=== PATIENT | female | born 1965 | race Caucasian/White ===

== ENCOUNTER → 2018-02-16 | Outpatient (CLI) | payer OTHER ==
[~2018-02-16] MED LIST: OMNIPAQUE 350 MG/ML, 75ML BOTTLE ONE
== END | disposition home or self-care (01) ==
LOC: CFH 14:16
PROVIDERS: ATTEND Surgery
DX: M89.9 Disorder of bone, unspecified (principal); E11.9 Type 2 diabetes mellitus without complications
CPT/HCPCS: 71260; 82565; Q9967

== ENCOUNTER 2018-04-13 06:00 | Day surgery (SDC) | payer OTHER ==
[~2018-04-13] VITALS: Ht 154.9 cm; Wt 91.0 kg
[2018-04-13 06:50] VITALS: BP 131/80
[2018-04-13] MEDS ORDERED: METF500T17 PO (06:56)
[2018-04-13] MEDS ORDERED: IBUP-1223 PO (06:56)
[2018-04-13] MEDS ORDERED: LOVA20TA2 PO (06:56)
[2018-04-13] MEDS ORDERED: LOSA100T7 PO (06:56)
[2018-04-13] MEDS ORDERED: SODIUM CHLORIDE 0.9% 1,000 ML IV SCH (07:00)
[2018-04-13] MEDS ORDERED: LIDOCAINE-MPF 2%, 2ML ONE (08:08)
[2018-04-13] MEDS ORDERED: NALOXONE 1 MG/ML, 2ML ONE (08:33)
[2018-04-13] MEDS ORDERED: FLUMAZENIL 0.1 MG/1 ML, 5ML ONE (08:33)
[2018-04-13] MEDS ORDERED: FENTANYL PF 100 MCG/2ML ONE (08:33)
[2018-04-13] MEDS ORDERED: MIDAZOLAM 1 MG/ML, 5ML ONE (08:33)
[2018-04-13] MEDS ORDERED: HYDROcodone/APAP 5/325 TABLET PO ONE (11:00)
== END 2018-04-13 11:35 | disposition home or self-care (01) ==
LOC: OUT 06:00
PROVIDERS: ATTEND Surgery
DX: M89.8X8 Other specified disorders of bone, other site (principal); E66.9 Obesity, unspecified; I10 Essential (primary) hypertension; Z98.890 Other specified postprocedural states
CPT/HCPCS: 20220; 77012; 88307; 88311; 99156; 99157; J2250; J3010; J3490; J7030; 88341; 88342; G0461; J2310

== ENCOUNTER → 2018-06-01 | Outpatient (CLI) | payer OTHER ==
[~2018-06-01] MED LIST changes: +IBUP-1223 PO; +LOSA100T7 PO; +LOVA20TA2 PO; +METF500T17 PO; -OMNIPAQUE 350 MG/ML, 75ML BOTTLE ONE
== END | disposition home or self-care (01) ==
LOC: PETCFH 12:46
PROVIDERS: ATTEND Internal Medicine Hematology & Oncology
DX: C90.20 Extramedullary plasmacytoma not having achieved remission (principal)
CPT/HCPCS: 78815; A9552

== ENCOUNTER → 2018-07-02 | Outpatient (CLI) | payer OTHER | END | disposition home or self-care (01) | LOC: ROC 08:33 | PROVIDERS: ATTEND Radiology Radiation Oncology | DX: C90.30 Solitary plasmacytoma not having achieved remission (principal); E11.9 Type 2 diabetes mellitus without complications | CPT/HCPCS: 99214; G0463 ==

== ENCOUNTER 2018-08-31 10:30 | Emergency (ER) | payer OTHER ==
[~2018-08-31] VITALS: Ht 152.4 cm; Wt 91.6 kg
[~2018-08-31 10:30] MED LIST changes: +LOSA100T14 PO; -LOSA100T7 PO
[2018-08-31] MEDS ORDERED: SODIUM CHLORIDE FLUSH 10ML SYR IVF ONE (11:30)
[2018-08-31 11:41] LABS: MEAN CORPUSCULAR HEMOGLOBIN 26.4 pg (27.0-34.8); MEAN CORPUSCULAR VOLUME 80.1 fL (80-100); MEAN PLATELET VOLUME 7.5 fL (7.4-10.4); PLATELET COUNT 196 x10^3/uL (130-400); RED BLOOD COUNT 4.63 x10^6/uL (3.82-5.3)
[2018-08-31 11:53] LABS: ALBUMIN 3.4 g/dL (3.4-5.0); ANION GAP 5 mmol/L (5-15); CHLORIDE 105 mmol/L (98-107)
[2018-08-31] MEDS ORDERED: ONDANSETRON 2MG/ML, 2ML ONE (11:53)
[2018-08-31] MEDS ORDERED: MORPHINE SULFATE 4 MG/ML, 1ML ONE (11:54)
[2018-08-31 11:56] LABS: ALANINE AMINOTRANSFERASE 50 U/L (12-78); ALKALINE PHOSPHATASE 97 U/L (45-117); BILIRUBIN,TOTAL 0.4 mg/dL (0.2-1.0); CREATININE 0.64 mg/dL (0.55-1.02); TOTAL PROTEIN 7.8 g/dL (6.4-8.2)
[2018-08-31] MEDS ORDERED: MORPHINE SULFATE 4 MG/ML, 1ML IVPush PRN (12:00)
[2018-08-31] MEDS ORDERED: ONDANSETRON 2MG/ML, 2ML IVPush ONE (12:00)
--- NOTE | 2018-08-31 12:00 | NUR ---
PT M[facility] FROM [facility] TO [facility], [facility], AT [facility], IV ORDERED AND PLACE WILL MEDICATE PATIENTS PAIN
[2018-08-31 12:33] LABS: BASOPHILS # (AUTO) 0.02 x10^3/uL (0-0.1); BASOPHILS % (AUTO) 1 % (0-1); EOSINOPHILS # (AUTO) 0.04 x10^3/uL (0-0.4); EOSINOPHILS % (AUTO) 1 % (1-7); LYMPHOCYTES # (AUTO) 0.22 x10^3/uL (1-3.4); LYMPHOCYTES % (AUTO) 5 % (22-44); MD SCAN; MONOCYTES # (AUTO) 0.42 x10^3/uL (0.2-0.8); MONOCYTES % (AUTO) 10 % (2-9); NEUTROPHILS # (AUTO) 3.64 x10^3/uL (1.8-6.8); NEUTROPHILS % (AUTO) 84 % (42-75); RED CELL DISTRIBUTION WIDTH 17.9 % (9.6-15.2)
[2018-08-31] MEDS ORDERED: OMNIPAQUE 350 MG/ML, 100ML BOTTLE ONE (12:59)
--- NOTE | 2018-08-31 13:04 | NUR ---
RECEIVED REPORT FROM JULIENNE VALENZUELA.
[2018-08-31 13:33] LABS: TROPONIN I < 0.015 ng/mL (0.000-0.045)
[2018-08-31 13:40] LABS: MICROSCOPIC AUTO
[2018-08-31 13:42] LABS: CULTURE INDICATED? YES
--- NOTE | 2018-08-31 15:08 | NUR ---
PT DISCHARGED WITH DISCHARGE INSTRUCTIONS AND FOLLOW UP INSTRUCTIONS.
[2018-08-31 15:10] VITALS: BP 137/75
== END 2018-08-31 15:16 | disposition home or self-care (01) ==
LOC: ED 11:53
DX: N30.00 Acute cystitis without hematuria (principal); E11.9 Type 2 diabetes mellitus without complications; I10 Essential (primary) hypertension
CPT/HCPCS: 36415; 71045; 71275; 74177; 80053; 81001; 83690; 84484; 85025; 87077; 87086; 93005; 96374; 96375; 99284; J2405; Q9967

== ENCOUNTER 2018-09-05 18:52 | Inpatient (IN) | payer OTHER ==
[~2018-09-05] VITALS: Ht 152.4 cm; Wt 94.3 kg
--- NOTE | 2018-09-05 19:17 | NUR ---
CALLED BY ED STAFF REQUESTING TO RETURN TO ED FOR ABX. SEEN 08/31 FOR COUGH/CP. PT REPORTS NO IMPROVEMENT IN S/S WITH MEDICATIONS RX'D 08/31 per triage note
[2018-09-05] MEDS ORDERED: ERTAPENEM 1 GM in SODIUM CHLORIDE 0.9% 50 ML IV ONE (20:00)
[2018-09-05] MEDS ORDERED: SODIUM CHLORIDE FLUSH 10ML SYR IVF ONE (20:00)
--- NOTE | 2018-09-05 20:20 | NUR ---
blood cultures were drawn iv abx was given per md carvalho
[2018-09-05 20:23] LABS: BASOPHILS # (AUTO) 0.02 x10^3/uL (0-0.1); BASOPHILS % (AUTO) 1 % (0-1); EOSINOPHILS # (AUTO) 0.07 x10^3/uL (0-0.4); EOSINOPHILS % (AUTO) 2 % (1-7); LYMPHOCYTES # (AUTO) 0.92 x10^3/uL (1-3.4); LYMPHOCYTES % (AUTO) 26 % (22-44); MD NO; MEAN CORPUSCULAR HEMOGLOBIN 26.2 pg (27.0-34.8); MEAN CORPUSCULAR VOLUME 79.3 fL (80-100); MEAN PLATELET VOLUME 7.8 fL (7.4-10.4); MONOCYTES # (AUTO) 0.38 x10^3/uL (0.2-0.8); MONOCYTES % (AUTO) 11 % (2-9); NEUTROPHILS # (AUTO) 2.16 x10^3/uL (1.8-6.8); NEUTROPHILS % (AUTO) 61 % (42-75); PLATELET COUNT 210 x10^3/uL (130-400); RED BLOOD COUNT 4.74 x10^6/uL (3.82-5.3); RED CELL DISTRIBUTION WIDTH 18.6 % (9.6-15.2)
[2018-09-05 20:32] LABS: ALBUMIN 3.1 g/dL (3.4-5.0); ANION GAP 7 mmol/L (5-15); CHLORIDE 106 mmol/L (98-107); CREATININE 0.63 mg/dL (0.55-1.02)
[2018-09-05] MEDS ORDERED: ONDANSETRON 2MG/ML, 2ML ONE (20:32)
[2018-09-05 20:48] LABS: MICROSCOPIC INDICATED
[2018-09-05] MEDS ORDERED: SODIUM CHLORIDE 0.9%, 500ML IVBOLUS ONE (21:00)
[2018-09-05] MEDS ORDERED: ONDANSETRON 2MG/ML, 2ML IVPush ONE (21:00)
[2018-09-05 21:19] LABS: CULTURE INDICATED? NO
--- NOTE | 2018-09-05 21:36 | NUR ---
unr at bedside for admit eval vss stable
[2018-09-05 21:56] VITALS: BP 118/69
[2018-09-05] MEDS ORDERED: DOCUSATE 100 MG CAPSULE PO PRN (22:00)
[2018-09-05] MEDS ORDERED: GLUCAGON 1 MG IM PRN (22:00)
[2018-09-05] MEDS ORDERED: POLYETHYLENE GLYCOL 17 GM PACKET PO PRN (22:00)
[2018-09-05] MEDS ORDERED: ACETAMINOPHEN 325 MG TABLET PO PRN (22:00)
[2018-09-05] MEDS ORDERED: IBUPROFEN 600 MG TABLET PO PRN (22:00)
[2018-09-05] MEDS ORDERED: ENALAPRILAT 1.25 MG/ML, 2ML IVPush PRN (22:00)
[2018-09-05] MEDS ORDERED: DEXTROSE 4 GM TAB.CHEW PO PRN (22:00)
[2018-09-05] MEDS ORDERED: ONDANSETRON ODT 4 MG PO PRN (22:00)
[2018-09-05] MEDS ORDERED: morphine SULFATE 10 MG/ML, 1ML IVPush PRN (22:00)
[2018-09-05] MEDS ORDERED: DEXTROSE 50%, 50ML SYRINGE IVPush PRN (22:00)
[2018-09-05] MEDS ORDERED: BISACODYL 10 MG SUPP PR PRN (22:00)
[2018-09-05] MEDS ORDERED: POTASSIUM CHLORIDE 20 MEQ TAB.ER.PRT PO ONE (22:30)
[2018-09-05] MEDS: SODIUM CHLORIDE 0.9% 1,000 ML IV SCH (23:26)
[2018-09-05] MEDS: ENOXAPARIN 40 MG/0.4 ML SQ SCH (23:26)
[2018-09-06] MEDS: DEXTROMETHORPHAN 30 MG/5 ML ORAL SOL PO PRN ×2 (00:06→22:20)
[2018-09-06] MEDS ORDERED: ALBUTEROL SULFATE 2.5 MG/3 ML ONE (00:38)
[2018-09-06] MEDS ORDERED: ALBUTEROL SULFATE 2.5 MG/3 ML NPPB PRN (01:30)
[2018-09-06 03:18] VITALS: BP 107/69
[2018-09-06 05:20] LABS: BASOPHILS # (AUTO) 0.02 x10^3/uL (0-0.1); BASOPHILS % (AUTO) 1 % (0-1); EOSINOPHILS # (AUTO) 0.09 x10^3/uL (0-0.4); EOSINOPHILS % (AUTO) 2 % (1-7); LYMPHOCYTES # (AUTO) 1.17 x10^3/uL (1-3.4); LYMPHOCYTES % (AUTO) 29 % (22-44); MD NO; MEAN CORPUSCULAR HEMOGLOBIN 26.4 pg (27.0-34.8); MEAN CORPUSCULAR HGB CONC 32.9 g/dL (32.4-35.8); MEAN CORPUSCULAR VOLUME 80.2 fL (80-100); MEAN PLATELET VOLUME 7.5 fL (7.4-10.4); MONOCYTES # (AUTO) 0.47 x10^3/uL (0.2-0.8); MONOCYTES % (AUTO) 11 % (2-9); NEUTROPHILS # (AUTO) 2.36 x10^3/uL (1.8-6.8); NEUTROPHILS % (AUTO) 58 % (42-75); PLATELET COUNT 199 x10^3/uL (130-400); RED BLOOD COUNT 4.26 x10^6/uL (3.82-5.3); RED CELL DISTRIBUTION WIDTH 18.9 % (9.6-15.2)
[2018-09-06 05:26] LABS: CHLORIDE 110 mmol/L (98-107)
[2018-09-06 05:31] LABS: ANION GAP 6 mmol/L (5-15); CALCIUM 7.7 mg/dL (8.5-10.1); CREATININE 0.58 mg/dL (0.55-1.02)
[2018-09-06 06:24] VITALS: BP 106/58
[2018-09-06] MEDS: INSULIN LISPRO 100 UNITS/ML, PEN SQ-INSULIN SCH ×4 (07:11→20:15)
[2018-09-06] MEDS: metFORMIN 500 MG TABLET PO SCH ×2 (08:17→20:13)
[2018-09-06] MEDS: SODIUM CHLORIDE FLUSH 10ML SYR IVF SCH ×2 (08:18→20:16)
[2018-09-06] MEDS: LOSARTAN 50MG TABLET PO SCH (08:18)
[2018-09-06] MEDS ORDERED: CALCIUM CARBONATE 500 MG TAB.CHEW PO PRN (09:00)
[2018-09-06 10:20] LABS: RAPID INFLUENZA A Negative (Negative); RAPID INFLUENZA B Negative (Negative)
[2018-09-06] MEDS: FAMOTIDINE 20 MG TABLET PO SCH ×2 (11:12→20:13)
[2018-09-06 12:14] VITALS: BP 129/78
[2018-09-06] MEDS: SODIUM CHLORIDE 0.9% 1,000 ML IV SCH (13:20)
[2018-09-06 14:00] LABS: HEMOGLOBIN A1C 7.4 % (4.2-6.3)
[2018-09-06 18:28] VITALS: BP 100/66
[2018-09-06] MEDS ORDERED: ERTAPENEM 1 GM in SODIUM CHLORIDE 0.9% 50 ML IV SCH (20:00)
[2018-09-06] MEDS ORDERED: LOVASTATIN 20 MG TABLET PO SCH (21:00)
[2018-09-06] MEDS: ENOXAPARIN 40 MG/0.4 ML SQ SCH (22:27)
[2018-09-07 00:50] VITALS: BP 122/76
[2018-09-07] MEDS: SODIUM CHLORIDE 0.9% 1,000 ML IV SCH ×2 (01:29→14:58)
[2018-09-07] MEDS: INSULIN LISPRO 100 UNITS/ML, PEN SQ-INSULIN SCH ×3 (07:01→15:37)
[2018-09-07 07:51] VITALS: BP 109/68
[2018-09-07] MEDS: FAMOTIDINE 20 MG TABLET PO SCH (08:45)
[2018-09-07] MEDS: SODIUM CHLORIDE FLUSH 10ML SYR IVF SCH (08:46)
[2018-09-07] MEDS: metFORMIN 500 MG TABLET PO SCH (08:46)
[2018-09-07] MEDS: LOSARTAN 50MG TABLET PO SCH (08:46)
[2018-09-07 11:19] LABS: CLOSTRIDIUM DIFFICILE ANTIGEN NEGATIVE; CLOSTRIDIUM DIFFICILE TOXIN NEGATIVE (Negative)
[2018-09-07] MEDS ORDERED: GLYCERIN ADULT SUPP PR ONE (11:30)
[2018-09-07 13:00] VITALS: BP 103/60
[2018-09-07] MEDS ORDERED: BENZ100C PO (14:06)
== END 2018-09-07 17:31 | disposition home or self-care (01) | DRG 689 ==
LOC: ED 19:29 → EDIP 20:27 → 4NOR 21:40
PROVIDERS: ADMIT Family Medicine; ATTEND Family Medicine
DX: N12 Tubulo-interstitial nephritis, not specified as acute or chronic (principal); J18.9 Pneumonia, unspecified organism; C90.30 Solitary plasmacytoma not having achieved remission; E87.2 Acidosis; J70.0 Acute pulmonary manifestations due to radiation; I50.9 Heart failure, unspecified; W18.30XA Fall on same level, unspecified, initial encounter; I11.0 Hypertensive heart disease with heart failure; E83.51 Hypocalcemia; E78.5 Hyperlipidemia, unspecified; E11.9 Type 2 diabetes mellitus without complications; D63.8 Anemia in other chronic diseases classified elsewhere; E66.9 Obesity, unspecified; Z16.12 Extended spectrum beta lactamase (ESBL) resistance; Z82.49 Family history of ischemic heart disease and other diseases of the circulatory system; Z92.3 Personal history of irradiation; Z99.81 Dependence on supplemental oxygen; J06.9 Acute upper respiratory infection, unspecified
CPT/HCPCS: 0399T; 36415; 71046; 74018; 80048; 81001; 82040; 82962; 83036; 83605; 84145; 85025; 87040; 87324; 87400; 93005; 93306; 94640; 96365; 96375; 99285; G0378; J1335; J1650; J2405; J7030; J7040

== ENCOUNTER 2018-09-08 10:20 | Outpatient (CLI) | payer OTHER ==
[~2018-09-08 10:20] MED LIST changes: +BENZ100C PO
== END 2018-09-08 23:59 | disposition home or self-care (01) ==
LOC: ROC 10:20
PROVIDERS: ATTEND Radiology Radiation Oncology
DX: Z02.9 Encounter for administrative examinations, unspecified (principal)

== ENCOUNTER → 2018-09-22 | Outpatient (CLI) | payer OTHER | END | disposition home or self-care (01) | LOC: EDSTATUS 09-11 14:49 → ROC 07:09 | PROVIDERS: ATTEND Radiology Radiation Oncology | DX: Z08 Encounter for follow-up examination after completed treatment for malignant neoplasm (principal); C90.30 Solitary plasmacytoma not having achieved remission | CPT/HCPCS: 99213; G0463 ==

== ENCOUNTER 2018-11-24 08:24 | Outpatient (CLI) | payer OTHER | END 2018-11-24 23:59 | disposition home or self-care (01) | LOC: PETCFH 08:24 | PROVIDERS: ATTEND Radiology Radiation Oncology | DX: R91.1 Solitary pulmonary nodule (principal); C90.30 Solitary plasmacytoma not having achieved remission | CPT/HCPCS: 78815; A9552 ==

== ENCOUNTER → 2018-12-01 | Outpatient (CLI) | payer OTHER | END | disposition home or self-care (01) | LOC: ROC 08:00 → EDSTATUS 07-12 12:43 | PROVIDERS: ATTEND Radiology Radiation Oncology | DX: Z08 Encounter for follow-up examination after completed treatment for malignant neoplasm (principal); C90.30 Solitary plasmacytoma not having achieved remission | CPT/HCPCS: 99212; G0463 ==

== ENCOUNTER 2019-05-31 07:56 | Outpatient (CLI) | payer OTHER | END 2019-05-31 23:59 | disposition home or self-care (01) | LOC: CFH 07:56 | PROVIDERS: ATTEND Internal Medicine Hematology & Oncology | DX: Z12.31 Encounter for screening mammogram for malignant neoplasm of breast (principal) | CPT/HCPCS: 77067 ==

== ENCOUNTER → 2020-01-19 | Outpatient (CLI) | payer OTHER ==
[~2020-01-19] MED LIST changes: +OMNIPAQUE 350 MG/ML, 100ML BOTTLE ONE
== END | disposition home or self-care (01) ==
LOC: CFH 07:07
PROVIDERS: ATTEND Internal Medicine Hematology & Oncology
DX: C90.20 Extramedullary plasmacytoma not having achieved remission (principal); K76.0 Fatty (change of) liver, not elsewhere classified
CPT/HCPCS: 71260; 74177; Q9967

== ENCOUNTER → 2020-02-01 | Outpatient (CLI) | payer OTHER ==
[~2020-02-01] MED LIST changes: -OMNIPAQUE 350 MG/ML, 100ML BOTTLE ONE
== END | disposition home or self-care (01) ==
LOC: CFH 14:20
PROVIDERS: ATTEND Obstetrics & Gynecology
DX: D25.1 Intramural leiomyoma of uterus (principal); N95.0 Postmenopausal bleeding
CPT/HCPCS: 76830

== ENCOUNTER → 2020-11-15 | Outpatient (CLI) | payer OTHER | END | disposition home or self-care (01) | LOC: RAD 14:08 | PROVIDERS: ATTEND Family Medicine | DX: J98.4 Other disorders of lung (principal); R05 Cough | CPT/HCPCS: 71046 ==

== ENCOUNTER → 2020-12-13 | Outpatient (CLI) | payer OTHER | END | disposition home or self-care (01) | LOC: RAD 08:28 | PROVIDERS: ATTEND Family Medicine | DX: M51.34 Other intervertebral disc degeneration, thoracic region (principal) | CPT/HCPCS: 72072 ==

== ENCOUNTER 2020-12-26 14:41 | Outpatient (CLI) | payer OTHER | END 2020-12-26 23:59 | disposition home or self-care (01) | LOC: CFH 14:41 | PROVIDERS: ATTEND Family Medicine | DX: Z12.31 Encounter for screening mammogram for malignant neoplasm of breast (principal) | CPT/HCPCS: 77067 ==